=== PATIENT | male | born 1980 | race Two or more races ===

== ENCOUNTER 2024-03-16 16:28 | Emergency (ER) | payer MEDICAID ==
[~2024-03-16] VITALS: Ht 177.8 cm; Wt 79.0 kg
[2024-03-16 16:37] VITALS: BP 138/76; PULSE 82; RESP 16; TEMP 98.3
== END 2024-03-16 18:47 | disposition left against medical advice (07) ==
LOC: EMS 16:31
DX: R07.9 Chest pain, unspecified (principal); Z53.21 Procedure and treatment not carried out due to patient leaving prior to being seen by health care provider
CPT/HCPCS: 99281; Z7502